=== PATIENT | male | born 1990 | race American Indian/Alaskan Native ===

== ENCOUNTER 2017-03-24 14:10 | Emergency (ER) | payer SELFPAY ==
[2017-03-24 14:16] VITALS: BP 115/68
--- NOTE | 2017-03-24 15:07 | XRay Report ---
RIGHT SHOULDER: History: Right shoulder pain. Routine views demonstrate normal bony and soft tissue structures with normal joint alignment of the shoulder. IMPRESSION: No evidence for acute injury.
[2017-03-24] MEDS ORDERED: BOOSTRIX IM ONE (15:46)
[2017-03-24] MEDS ORDERED: XYLOCAINE 1% MPF 5 mL INFILTRATI ONE (15:49)
[2017-03-24] MEDS ORDERED: ROCEPHIN IM ONE (15:49)
[2017-03-24] MEDS ORDERED: NORCO 7.5/325 PO ONE (15:50)
[2017-03-24] MEDS ORDERED: NACL 0.9% IR ONE (15:53)
[2017-03-24] MEDS ORDERED: POLYSPORIN TP ONE (15:53)
[2017-03-24] MEDS ORDERED: XYLOCAINE 1%/ EPI 1:100,000 INFILTRATI ONE (15:55)
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
== END 2017-03-24 18:12 | disposition home or self-care (01) ==
LOC: ED 14:10
DX: S71.151A Open bite, right thigh, initial encounter (principal); F12.10 Cannabis abuse, uncomplicated; W64.XXXA Exposure to other animate mechanical forces, initial encounter; Y93.9 Activity, unspecified; Y92.9 Unspecified place or not applicable; Y99.9 Unspecified external cause status
CPT/HCPCS: 73030; 90471; 90715; 96372; 99284; J0696